=== PATIENT | male | born 1945 | race Caucasian/White ===

== ENCOUNTER 2018-06-05 17:05 | Observation (INO) | payer OTHER ==
--- NOTE | 2018-06-05 18:02 | PDOC ---
Attending Attestation - HPI HPI: 06/05/18 18:59 The patient is a 73 year old male with a significant PMH of hypertension, and hyperlipidemia who presents to the emergency department with a headache for 2 days. The patient reports that he was at home when he had a sudden onset of his headache. He states that he has never had issues with headaches in the past. The patient describes his headache as right sided ,a 7/10 in severity, intermittent lasting about 10 minutes at a time 3 times a day and , worsened at night. The patient reports some associated blurry vision in his right eye and double vision with clear discharge from his right eye. The patient reports taking motrin with no apparent relief. He denies any recent illness, trauma or travel. He denies any other symptoms. He denies any fever, chills, nausea, vomiting, diarrhea, constipation or urinary symptoms. He denies any chest pain, shortness of breath, or dizziness. The patient denies any other complaints. Documentation prepared by Priti Suárez, acting as medical review coordinator for Cherrie Vergara MD. <Priti Suárez - Last Filed: 06/05/18 18:59> - Resident Resident Name: Yaw Márquez - ED Attending Attestation I have performed the following: I have examined & evaluated the patient, The case was reviewed & discussed with the resident, I agree w/resident's findings & plan, Exceptions are as noted - Physicial Exam PE: GENERAL: Awake, alert, and fully oriented, in no acute distress HEAD: No signs of trauma EYES: PERRLA, EOMI, sclera anicteric, conjunctiva clear ENT: Auricles normal inspection, hearing grossly normal, nares patent, oropharynx clear without exudates. Moist mucosa NECK: Normal ROM, supple, no lymphadenopathy, JVD, or masses LUNGS: Breath sounds equal, clear to auscultation bilaterally. No wheezes, and no crackles HEART: Regular rate and rhythm, normal S1 and S2, no murmurs, rubs or gallops ABDOMEN: Soft, nontender, normoactive bowel sounds. No guarding, no rebound. No masses EXTREMITIES: L hand in glove (prior injury, per family member at bedside). Normal range of motion, no edema. No clubbing or cyanosis. No cords, erythema, or tenderness NEUROLOGICAL: Cranial nerves II through XII grossly intact. Normal speech, normal gait. Motor and sensation intact. SKIN: Warm, Dry, normal turgor, no rashes or lesions noted. - Medical Decision Making 06/05/18 19:42 Pt with hedache that woke him from sleep, blurry vision on R side. Will obtain CTH to r/o ICH. If neg, will consider with contrast to r/o mass. <Cherrie Vergara - Last Filed: 06/05/18 19:43>
--- NOTE | 2018-06-05 18:14 | PDOC ---
History of Present Illness - General Chief Complaint: Headache Stated Complaint: Headache Time Seen by Provider: 06/05/18 17:44 History Source: Patient Exam Limitations: No Limitations - History of Present Illness Initial Comments: 06/05/18 18:08 73 yo male pmh of HTN and HLD presents to the ED with a right sided MILLER. Patient states he has never suffered from MILLER in the past. The MILLER started 2 days ago, woke him up out of sleep and comes in waves that last 10 min with an average of 3X per day, worse at night. MILLER is described as squeezing, 10/10 non radiating with no known triggers and no relief after trying Motrin today. Of note, pt PCP and has been off his BP medications for 1 month.Admits to associated blurry vision and double vision in right eye. Denies recent trauma, N /V/F/C, one sided weakness or sensory deficits, incontinence or retention of urine or stool, recent travel or illness. Denies CP, SOB, abdominal pain. 06/06/18 00:10 After discharging pt, daughter states she just spoke with his who admits the patient has had a week of intermittent chest pain and fainted Thursday. Patient has also been dizzy intermittently over the last week. Past History - Past Medical History Allergies/Adverse Reactions: Allergies Allergy/AdvReac Type Severity Reaction Status Date / Time No Known Allergies Allergy Verified 06/05/18 17:12 Home Medications: Ambulatory Orders Ibuprofen [Motrin Ib] 400 mg PO Q6H PRN 06/05/18 COPD: No - Suicide/Smoking/Psychosocial Hx Smoking History: Never smoked Information on smoking cessation initiated: No Hx Alcohol Use: No Drug/Substance Use Hx: No Substance Use Type: None Review of Systems - Review of Systems Constitutional: No: Chills, Fever HEENTM: Yes: Eye Pain, Blurred Vision, Recent change in vision (2 days ago), Double Vision, Other (headache right side) Respiratory: No: Shortness of Breath Cardiac (ROS): No: Chest Pain, Edema, Irregular Heart Rate, Lightheadedness, Syncope ABD/GI: No: Constipated, Diarrhea, Nausea, Vomiting : No: Burning, Dysuria Musculoskeletal: No: Back Pain Neurological: Yes: Headache (right sided). No: Numbness, Paresthesia, Tingling , Weakness, Ataxia *Physical Exam - Vital Signs Last Vital Signs Temp Pulse Resp BP Pulse Ox 98.6 F 72 18 141/83 100 06/05/18 17:12 06/05/18 17:12 06/05/18 17:12 06/05/18 17:12 06/05/18 17:12 ED Treatment Course - LABORATORY CBC & Chemistry Diagram: 06/05/18 18:20 06/05/18 18:20 Medical Decision Making - Medical Decision Making 06/05/18 22:38 73 yo presents to ED for 2 day MILLER and not on BP meds for 1 month. No concerning neurological s/s 1000mg IV tylenol resolved pain Head CT w/wo IV contrast given, no acute findings Benadryl given for rash after contrast, cleared rash Will follow up with [facility] for high BP Discharge home with motrin/tylenol OTC 06/06/18 00:26 After discharging pt, daughter states she just spoke with his who admits the patient has had a week of intermittent chest pain and fainted Thursday. Patient has also been dizzy intermittently over the last week. Pt will be admitted to OBS under [facility] *DC/Admit/Observation/Transfer Diagnosis at time of Disposition: Headache Qualifiers: Headache type: unspecified Headache chronicity pattern: acute headache Intractability: not intractable Qualified Code(s): R51 - Headache Chest pain Qualifiers: Chest pain type: unspecified Qualified Code(s): R07.9 - Chest pain, unspecified Syncope Qualifiers: Encounter type: initial encounter - Discharge Dispostion Disposition: HOME Condition at time of disposition: Stable Decision to Admit order: Yes - Referrals Referrals: [facility] [place] [Provider Group] - Patient Instructions Printed Discharge Instructions: DI for Headache Additional Instructions: Por favor, sam un seguimiento con la Clnica referida en el paquete en los prximos 3 [place] para rebecca mirella. La presin arterial debe abordarse ya que no miller tomado medicamentos maida 1 mes. [place] Motrin y Tylenol sobre el mostrador janie se indica en la caja para el dolor de tory. Regrese a la joshua de emergencias para los sntomas nuevos o que empeoran, entre los que se incluyen: prdida de la visin, debilidad en un lado del cuerpo, nuseas, vmitos o incontinencia. Amber. Print Language: KYRGYZ - Post Discharge Activity
[2018-06-05 19:08] LABS: BASO % 0.7 % (0-2.0); EOS % 1.9 % (0-4.5); HEMOGLOBIN 14.1 GM/dL (11.7-16.9); LYMPH % 31.4 % (8-40); MCH 30.7 pg (25.7-33.7); MCHC 34.4 g/dl (32.0-35.9); MEAN CELL VOLUME 89.2 fl (80-96); MEAN PLT VOLUME 9.6 fl (7.5-11.1); MONO % 8.3 % (3.8-10.2); NEUT % 57.7 % (42.8-82.8); PLATELET COUNT 200 K/MM3 (134-434); RDW 13.3 % (11.9-15.9); WHITE BLOOD COUNT 9.3 K/mm3 (4.0-10.0)
[2018-06-05] MEDS ORDERED: ACETAMINOPHEN 1000 MG/100 ML VIAL (NON FORMULARY) IVPB ONE (19:37)
[2018-06-05 19:49] LABS: ALBUMIN 3.6 g/dl (3.4-5.0); ALK PHOS 105 U/L (45-117); ANION GAP 10 MMOL/L (8-16); BILIRUBIN,TOTAL 0.6 mg/dL (0.2-1); BLOOD UREA NITROGEN 23 mg/dL (7-18); CALCIUM 8.4 mg/dL (8.5-10.1); CHLORIDE 105 mmol/L (98-107); CO2 24 mmol/L (21-32); GLUCOSE,RANDOM 89 mg/dL (74-106); POTASSIUM 3.3 mmol/L (3.5-5.1); SGOT/AST 32 U/L (15-37); SGPT/ALT 51 U/L (13-61); SODIUM 139 mmol/L (136-145); TOT PROT 7.2 g/dl (6.4-8.2)
[2018-06-05] MEDS ORDERED: ACETAMINOPHEN INJECTION 100 ML IVPB ONE (19:49)
[2018-06-05 19:57] LABS: ERYTHROCYTE SEDIMENTATION RATE 2 mm/hr (0-20)
[2018-06-05] MEDS ORDERED: diphenhydrAMINE HCL 25 MG CAPSULE (FP) PO ONE ×2 (21:49→21:53)
--- NOTE | 2018-06-06 00:06 | PN ---
Teaching Attending Note Name of Resident: Ashley Corona ATTENDING PHYSICIAN STATEMENT I saw and evaluated the patient. I reviewed the resident's note and discussed the case with the resident. I agree with the resident's findings and plan as documented. SUBJECTIVE: Patient is a 73 year old with PMH of HTN and HLD who presents to the ER with a right sided headache. Patient states he has never suffered from headache in the past. The headache started 2 days ago, woke him up out of sleep and comes in waves that last 10 min with an average of 3X per day, worse at night. MILLER is described as squeezing, 10/10 non radiating with no known triggers and no relief after trying Motrin today. Of note, his PCP and has been off his BP medications for 1 month. Admits to associated blurry vision and double vision in right eye. Denies recent trauma, nausea, vomiting, one sided weakness or sensory deficits, incontinence or retention of urine or stool, chest pain or SOB. As the workup for headache was completed his family called and said that he had presyncope 5 days ago with associated chest pain. OBJECTIVE: Alert Vital Signs Period Temp Pulse Resp BP Sys/Montez Pulse Ox Last 24 Hr 98.6 F 53-72 18-18 141-156/83-87 96-100 HEENT: No Jaundice, eye redness or discharge, PERRLA, EOMI. Normocephalic, atraumatic. External ears are normal and hearing is grossly intact. No nasal discharge. Neck: Supple, nontender. No palpable adenopathy or thyromegaly. No JVD Chest: Good effort. Clear to auscultation and percussion. Heart: Regular. No S3, rub or murmur Abdomen: Not distended, soft, nontender and no HSM. No rebound or guarding. Normoactive bowel sounds. Ext: Peripheral pulses intact. No leg edema. Skin: Warm and dry. No petechiae, rash or ecchymosis. Neuro: Alert. Oriented x3. CN 2-12 grossly intact. Sensation grossly intact in all four extremities and DTR are symmetric. Home Medications Medication Instructions Recorded Ibuprofen [Motrin Ib] 400 mg PO Q6H PRN 06/05/18 Abnormal Lab Results 06/05/18 18:20 Potassium 3.3 L BUN 23 H Calcium 8.4 L C-Reactive Protein 0.6 H ASSESSMENT AND PLAN: 1. Headache - Etiology is unclear. No acute pathology on head CT scan done with and without contrast. His headache responded to IV tylenol. Etiology of hypokalemia is unclear. Will check Mg+ level and treat with PO KCL. Consult Neurology. No acute pathology on CXR. EKG showed mild bradycardia but no ST-T wave changes and troponin is negative. Will admit to telemetry to rule out ACS, get ECHO and carotid doppler. Get urinalysis. 2. DVT prophylaxis - Lovenox 40 mg SQ q 24 hours. 3. Advance directives - Full code
[2018-06-06] MEDS ORDERED: ACETAMINOPHEN 325 MG TABLET (FP) PO PRN (00:44)
[2018-06-06] MEDS ORDERED: POTASSIUM CHLORIDE ORAL LIQUID 20 MEQ/15 ML PO ONE (00:48)
--- NOTE | 2018-06-06 00:56 | HP ---
CHIEF COMPLAINT: Headache, near syncope episode PCP: HISTORY OF PRESENT ILLNESS: Patient is a 73 year old male with past medical history of HTN and HLD, presented to the ED with worsening right-sided headache that started 2 days ago. Patient also reported intermittent chest heaviness for the past week and was reported to have a near syncope episode 5 days ago. Patient reports that he has been having chest heaviness that started 1 week ago. Pain was nonradiating with no aggravating or alleviating factors. Five days ago, patient was walking up the stairs when suddenly he felt lightheaded and had to hold on to the rails. No consult done at that time. Two days prior, patient had sudden onset right-sided headache, 7/10, intermittent that would last about 10 minutes. This was accompanied by right eye pain, blurred vision and clear discharge. Patient took motrin with no relief. Persistence of pain prompted patient to go to the ED. Otherwise, he denies fever, chills, nausea, vomiting, SOB, dyspnea, abdominal pain, diarrhea or constipation. ER course was notable for: (1)K 3.3 (2)Head CT w/ and w/o contrast (3)Ofirmev 1000mg given Recent Travel:denies any recent travel PAST MEDICAL HISTORY: Hypertension Hyperlipidemia PAST SURGICAL HISTORY: L hand fracture s/p metal santana placement Social History: Smoking:previous smoker, used to smoke 1PPD, quit 30years ago Alcohol:occasional EtOH drinker Drugs: denies illicit drug use Family History:non contributory Allergies No Known Allergies Allergy (Verified 06/05/18 17:12) HOME MEDICATIONS: Home Medications Medication Instructions Recorded Ibuprofen [Motrin Ib] 400 mg PO Q6H PRN 06/05/18 REVIEW OF SYSTEMS CONSTITUTIONAL: Absent: fever, chills, diaphoresis, generalized weakness, malaise, loss of appetite, weight change HEENT: headache, right eye pain and discharge Absent: rhinorrhea, nasal congestion, throat pain, throat swelling, difficulty swallowing, mouth swelling, ear pain, eye pain, visual changes CARDIOVASCULAR: Absent: chest pain, syncope, palpitations, irregular heart rate, lightheadedness , peripheral edema RESPIRATORY: Absent: cough, shortness of breath, dyspnea with exertion, orthopnea, wheezing, stridor, hemoptysis GASTROINTESTINAL: Absent: abdominal pain, abdominal distension, nausea, vomiting, diarrhea, constipation, melena, hematochezia GENITOURINARY: Absent: dysuria, frequency, urgency, hesitancy, hematuria, flank pain, genital pain MUSCULOSKELETAL: Absent: myalgia, arthralgia, joint swelling, back pain, neck pain SKIN: Absent: rash, itching, pallor HEMATOLOGIC/IMMUNOLOGIC: Absent: easy bleeding, easy bruising, lymphadenopathy, frequent infections ENDOCRINE: Absent: unexplained weight gain, unexplained weight loss, heat intolerance, cold intolerance NEUROLOGIC: Absent: headache, focal weakness or paresthesias, dizziness, unsteady gait, seizure, mental status changes, bladder or bowel incontinence PSYCHIATRIC: Absent: anxiety, depression, suicidal or homicidal ideation, hallucinations. PHYSICAL EXAMINATION Vital Signs - 24 hr 06/05/18 06/05/18 06/05/18 17:12 17:50 18:00 Temperature 98.6 F Pulse Rate 72 Pulse Rate [ 67 Radial] Respiratory 18 18 Rate Blood Pressure 141/83 Blood Pressure 156/87 [Left Arm] O2 Sat by Pulse 100 98 98 Oximetry (%) 06/05/18 23:37 Temperature Pulse Rate Pulse Rate [ 53 L Radial] Respiratory 18 Rate Blood Pressure Blood Pressure 145/83 [Left Arm] O2 Sat by Pulse 96 Oximetry (%) GENERAL: Awake, alert, and fully oriented, in no acute distress. HEAD: Normal with no signs of trauma. EYES: PERRLA,EOMI, sclera anicteric, conjunctiva clear. No lid lag. EARS, NOSE, THROAT: Ears normal, nares patent, oropharynx clear without exudates. Moist mucous membranes. NECK: Normal range of motion, supple without lymphadenopathy, JVD, or masses. LUNGS: Breath sounds equal, clear to auscultation bilaterally. HEART: Regular rate and rhythm, normal S1 and S2 without murmur, rub or gallop. ABDOMEN: Soft, nontender, not distended, normoactive bowel sounds. MUSCULOSKELETAL: Normal range of motion at all joints. No bony deformities or tenderness. No CVA tenderness. UPPER EXTREMITIES: 2+ pulses, warm, well-perfused. No cyanosis. No clubbing. No peripheral edema. LOWER EXTREMITIES: 2+ pulses, warm, well-perfused. No calf tenderness. No peripheral edema. NEUROLOGICAL: Cranial nerves II-XII intact. Normal speech. Normal gait. sensation intact, motor 5/5. PSYCHIATRIC: Cooperative. Good eye contact. Appropriate mood and affect. SKIN: Warm, dry, normal turgor, no rashes or lesions noted, normal capillary refill. Laboratory Results - last 24 hr 06/05/18 06/05/18 06/05/18 18:20 18:20 23:05 WBC 9.3 RBC 4.60 Hgb 14.1 Hct 41.0 MCV 89.2 MCH 30.7 MCHC 34.4 RDW 13.3 Plt Count 200 MPV 9.6 Absolute Neuts (auto) 5.4 Neutrophils % 57.7 Lymphocytes % 31.4 Monocytes % 8.3 Eosinophils % 1.9 Basophils % 0.7 Nucleated RBC % 0 ESR 2 Sodium 139 Potassium 3.3 L Chloride 105 Carbon Dioxide 24 Anion Gap 10 BUN 23 H Creatinine 1.0 Creat Clearance w eGFR > 60 Random Glucose 89 Calcium 8.4 L Total Bilirubin 0.6 AST 32 ALT 51 Alkaline Phosphatase 105 Creatine Kinase 234 Creatine Kinase Index 1.1 CK-MB (CK-2) 2.6 Troponin I 0.02 C-Reactive Protein 0.6 H Total Protein 7.2 Albumin 3.6 ASSESSMENT/PLAN: Patient is a 73 year old male with past medical history of HTN and HLD, presented to the ED with worsening right-sided headache that started 2 days ago. Patient also reported intermittent chest heaviness for the past week and was reported to have a near syncope episode 5 days ago. #Near syncope episode: ACS vs TIA/CVA -Trop 0.02, will trend -Echocardiogram ordered -Head CT pending final read -Continue ASA 325mg daily. -Started Lipitor 10mg PO HS #Headache: likely migraine vs cluster headache, r/o ICH and mass -Head CT with and without contrast done - pending final read -Tylenol IV provided significant relief -Tylenol 650mg q6h PRN #Hypokalemia: K 3.3 -K-dur 40meq PO given -will monitor #Hypertension -Continue HCTZ/Lisinopril 12.5/20 daily -Has not taken medication for the past 2 months as PCP and patient has not seen any doctor for refills since. #Hyperlipidemia -No meds recorded at the pharmacy -Started Lipitor 10mg PO HS #FEN -not on any standing fluids -encourage increased oral fluid intake -hypoK, replete as needed -routine bmp monitoring -sodium-restricted diet #Prophylaxis -Heparin 5000units sq tid #Disposition -admit to tele obs Visit type - Emergency Visit Emergency Visit: Yes ED Registration Date: 06/06/18 Care time: The patient presented to the Emergency Department on the above date and was hospitalized for further evaluation of their emergent condition. - New Patient This patient is new to me today: Yes Date on this admission: 06/06/18 - Critical Care Critical Care patient: No
[2018-06-06] MEDS ORDERED: POTASSIUM CHLORIDE TABS 20 MEQ TABLET.ER (FP) PO ONE ×2 (00:59→01:37)
[2018-06-06 07:05] LABS: URINE APPEARANCE CLEAR; URINE BILIRUBIN NEGATIVE (<2.0 mg/dL); URINE COLOR LTYELLOW; URINE GLUCOSE (UA) NEGATIVE (NEGATIVE); URINE KETONE NEGATIVE (NEGATIVE); URINE LEUK ESTERASE NEGATIVE (NEGATIVE); URINE NITRITE NEGATIVE (NEGATIVE); URINE PROTEIN NEGATIVE (NEGATIVE); URINE UROBILINOGEN NEGATIVE mg/dL (0.2-1.0)
[2018-06-06 08:00] LABS: BASO % 1.1 % (0-2.0); EOS % 3.4 % (0-4.5); HEMOGLOBIN 14.3 GM/dL (11.7-16.9); LYMPH % 33.4 % (8-40); MCH 30.4 pg (25.7-33.7); MCHC 33.9 g/dl (32.0-35.9); MEAN CELL VOLUME 89.7 fl (80-96); MEAN PLT VOLUME 10.1 fl (7.5-11.1); MONO % 7.1 % (3.8-10.2); PLATELET COUNT 165 K/MM3 (134-434); RBC 4.68 M/mm3 (4.00-5.60); RDW 13.3 % (11.9-15.9); WHITE BLOOD COUNT 7.3 K/mm3 (4.0-10.0)
[2018-06-06] MEDS ORDERED: HEPARIN NA (PORCINE) 5,000 UNITS/ML 1ML VIAL ONE ×3 (08:16→22:49)
[2018-06-06] MEDS: HEPARIN NA (PORCINE) 5,000 UNITS/ML 1ML VIAL SQ SCH ×3 (08:21→23:00)
[2018-06-06 09:05] LABS: ALBUMIN 3.4 g/dl (3.4-5.0); ALK PHOS 98 U/L (45-117); ANION GAP 8 MMOL/L (8-16); BILIRUBIN,TOTAL 0.6 mg/dL (0.2-1); BLOOD UREA NITROGEN 20 mg/dL (7-18); CALCIUM 8.1 mg/dL (8.5-10.1); CHLORIDE 106 mmol/L (98-107); CO2 27 mmol/L (21-32); CREATININE 0.9 mg/dL (0.55-1.3); GLUCOSE,RANDOM 86 mg/dL (74-106); MAGNESIUM 2.4 mg/dL (1.8-2.4); PHOSPHOROUS 3.8 mg/dL (2.5-4.9); POTASSIUM 3.7 mmol/L (3.5-5.1); SGOT/AST 39 U/L (15-37); SGPT/ALT 48 U/L (13-61); SODIUM 141 mmol/L (136-145)
[2018-06-06] MEDS: ASPIRIN 325 MG ENTERIC COATED TABLET (FP) PO SCH (09:25)
[2018-06-06] MEDS: TAMSULOSIN HCL 0.4 MG CAP PO SCH (09:25)
[2018-06-06] MEDS: HYDROCHLOROTHIAZIDE 12.5 MG CAPSULE (FP) PO SCH (09:26)
[2018-06-06] MEDS: LISINOPRIL 20 MG TABLET (FP) PO SCH (09:26)
[2018-06-06] MEDS ORDERED: PATIENT'S OWN MEDICATION (NON-FORMULARY) (Lisinopril/Hydrochlorothiazide [Lisinopril-Hctz PO SCH (10:00)
--- NOTE | 2018-06-06 10:12 | PN ---
Physical Exam: SUBJECTIVE: Patient seen and examined, OBJECTIVE: Vital Signs Period Temp Pulse Resp BP Sys/Montez Pulse Ox Last 24 Hr 98.2 F-98.6 F 53-72 18-18 122-156/60-87 95-100 GENERAL: The patient is awake, alert, and fully oriented, in no acute distress. HEAD: Normal with no signs of trauma. EYES: mild right eye tearing, injection, PERRL, no discharge or erythema or sinai-orbital swelling, sticky right eye ENT: Ears normal, nares patent, oropharynx clear without exudates, moist mucous membranes. NECK: Trachea midline, full range of motion, supple. LUNGS: Breath sounds equal, clear to auscultation bilaterally, no wheezes, no crackles, no accessory muscle use. HEART: S1S2 regular rate rhythm ABDOMEN: Soft, nontender, nondistended, normoactive bowel sounds, no guarding, no rebound EXTREMITIES: 2+ pulses, warm, well-perfused, no edema. NEUROLOGICAL: Cranial nerves II through XII grossly intact. Normal speech, gait not observed. AAox3, power 5/5, sensation positive and symmetric to light touch, power 5/5 except right hand movements limited by splint and recent trauma, Toes down going, facial symmetry, tongue midline PSYCH: Normal mood, normal affect. SKIN: Warm, dry, normal turgor, no rashes or lesions noted Laboratory Results - last 24 hr 06/05/18 06/05/18 06/05/18 18:20 18:20 23:05 WBC 9.3 RBC 4.60 Hgb 14.1 Hct 41.0 MCV 89.2 MCH 30.7 MCHC 34.4 RDW 13.3 Plt Count 200 MPV 9.6 Absolute Neuts (auto) 5.4 Neutrophils % 57.7 Lymphocytes % 31.4 Monocytes % 8.3 Eosinophils % 1.9 Basophils % 0.7 Nucleated RBC % 0 ESR 2 Sodium 139 Potassium 3.3 L Chloride 105 Carbon Dioxide 24 Anion Gap 10 BUN 23 H Creatinine 1.0 Creat Clearance w eGFR > 60 Random Glucose 89 Calcium 8.4 L Phosphorus Magnesium Total Bilirubin 0.6 AST 32 ALT 51 Alkaline Phosphatase 105 Creatine Kinase 234 Creatine Kinase Index 1.1 CK-MB (CK-2) 2.6 Troponin I 0.02 C-Reactive Protein 0.6 H Total Protein 7.2 Albumin 3.6 Urine Color Urine Appearance Urine pH Ur Specific [place] Urine Protein Urine Glucose (UA) Urine Ketones Urine Blood Urine Nitrite Urine Bilirubin Urine Urobilinogen Ur Leukocyte Esterase 06/06/18 06/06/18 06/06/18 06:06 07:35 07:35 WBC 7.3 RBC 4.68 Hgb 14.3 Hct 42.0 MCV 89.7 MCH 30.4 MCHC 33.9 RDW 13.3 Plt Count 165 MPV 10.1 Absolute Neuts (auto) 4.0 Neutrophils % 55.0 Lymphocytes % 33.4 Monocytes % 7.1 Eosinophils % 3.4 Basophils % 1.1 Nucleated RBC % 0 ESR Sodium 141 Potassium 3.7 Chloride 106 Carbon Dioxide 27 Anion Gap 8 BUN 20 H Creatinine 0.9 Creat Clearance w eGFR > 60 Random Glucose 86 Calcium 8.1 L Phosphorus 3.8 Magnesium 2.4 Total Bilirubin 0.6 AST 39 H ALT 48 Alkaline Phosphatase 98 Creatine Kinase 206 Creatine Kinase Index 0.9 CK-MB (CK-2) 2.0 Troponin I 0.02 C-Reactive Protein Total Protein 7.0 Albumin 3.4 Urine Color Ltyellow Urine Appearance Clear Urine pH 5.0 Ur Specific [place] > 1.060 H Urine Protein Negative Urine Glucose (UA) Negative Urine Ketones Negative Urine Blood Negative Urine Nitrite Negative Urine Bilirubin Negative Urine Urobilinogen Negative Ur Leukocyte Esterase Negative Active Medications Generic Name Dose Route Start Last Admin Trade Name Freq PRN Reason Stop Dose Admin Acetaminophen 650 mg 06/06/18 00:44 Tylenol - PO Q6H PRN PAIN LEVEL 1-5 OR FEVER Aspirin 325 mg 06/06/18 10:00 06/06/18 09:25 Ecotrin - PO 325 mg DAILY DAYAN Administration Atorvastatin Calcium 10 mg 06/06/18 22:00 Lipitor - PO HS DAYAN Heparin Sodium (Porcine) 5,000 unit 06/06/18 06:00 06/06/18 08:21 Heparin - SQ 5,000 unit TID DAYAN Administration Hydrochlorothiazide 12.5 mg 06/06/18 10:00 06/06/18 09:26 Hctz - PO 12.5 mg DAILY DAYAN Administration Lisinopril 20 mg 06/06/18 10:00 06/06/18 09:26 Prinivil PO 20 mg DAILY DAYAN Administration Tamsulosin HCl 0.4 mg 06/06/18 08:30 06/06/18 09:25 Flomax - PO 0.4 mg DAILY@0830 [facility] Administration ASSESSMENT/PLAN: 73 yom with PMhx of HTN, HLD admitted with unilateral headache with right eye pain/blurry vision/tearing and chest heaviness for 1 week. -Unilateral headache, ?from early conjunctivitis, r/o migraine vs cluster headaches -Chest pain -HTN -HLD Plan: Mild sticky right eye with conjuntival injection and tearing. Trial with Ofloxacin eye drops qid, opthalmology input,especially if fails to improve. Cannot r/o migraine/cluster headaches. Placed on NSAIDs pending CT brain results. Follow up CT brain results. Neurology consult Dr. Jacob cardiology input. ACS ruled out. 2D echo. Further testing based on clinical course and cardiology recs. Check lipid panel. Continue ASA/statin/lisinopril/HCTZ. DVTPPX heparin dispo pending above Plan discussed with patient in detail, all questions answered. Visit type - Emergency Visit Emergency Visit: Yes ED Registration Date: 06/06/18 Care time: The patient presented to the Emergency Department on the above date and was hospitalized for further evaluation of their emergent condition. - New Patient This patient is new to me today: Yes Date on this admission: 06/06/18 - Critical Care Critical Care patient: No - Discharge Referral Referred to [facility] Med P.[facility].: No
[2018-06-06 10:22] LABS: CHOLESTEROL 170 mg/dL (50-200); HDL CHOLESTEROL 40 mg/dL (40-60); TRIGLYCERIDES 130 mg/dL (0-150)
[2018-06-06] MEDS ORDERED: OFLOXACIN 0.3% OPHTHALMIC SOLUTION 5 ML BOTTLE OU ONE (10:23)
--- NOTE | 2018-06-06 10:50 | EKG ---
Test Reason : Blood Pressure : / mmHG Vent. Rate : 059 BPM Atrial Rate : 059 BPM P-R Int : 170 ms QRS Dur : 096 ms QT Int : 438 ms P-R-T Axes : 048 -03 074 degrees QTc Int : 433 ms SINUS BRADYCARDIA NONSPECIFIC ST ABNORMALITY Confirmed by HO HOOVER MD ([id number]) on 06/06/2018 10:50:13 AM Referred By: Confirmed By:HO HOOVER MD
[2018-06-06] MEDS: OFLOXACIN 0.3% OPHTHALMIC SOLUTION 5 ML BOTTLE OU SCH ×4 (12:07→23:00)
--- NOTE | 2018-06-06 12:36 | CON.NEURO ---
Consult Consult Specialty:: [facility] Referred by:: ER Reason for Consultation:: MILLER - History of Present Illness History of Present Illness: 73 years old man with PMH CAd OA HTN Hich Chol presented with headache Head CT neg I saw dylon patient in the ER he was complaining pf frontal headache no visual symptom no neck pain Patient denies prior similar headache no recent travel ESR was 2 - History Source History Provided By: Medical Record Limitations to Obtaining History: No Limitations - Alcohol/Substance Use Hx Alcohol Use: No - Smoking History Smoking history: Never smoked Home Medications - Allergies Allergies/Adverse Reactions: Allergies Allergy/AdvReac Type Severity Reaction Status Date / Time No Known Allergies Allergy Verified 06/05/18 17:12 - Home Medications Home Medications: Ambulatory Orders Ibuprofen [Motrin Ib] 400 mg PO Q6H PRN 06/05/18 Aspirin [Aspirin EC] 325 mg PO DAILY 06/06/18 Lisinopril/Hydrochlorothiazide [Lisinopril-Hctz 20-12.5 mg Tab] 1 each PO DAILY 06/06/18 Tamsulosin HCl [Flomax] 0.4 mg PO DAILY 06/06/18 Review of Systems - Review of Systems Constitutional: reports: No Symptoms Eyes: reports: No Symptoms Physical Exam-Neuro Vital Signs: Vital Signs Temperature 98.2 F 06/06/18 08:54 Pulse Rate 56 L 06/06/18 08:54 Respiratory Rate 18 06/06/18 08:54 Blood Pressure 122/60 06/06/18 08:54 O2 Sat by Pulse Oximetry (%) 95 06/06/18 08:54 Constitutional: Yes: Well Nourished Neck: Yes: WNL Labs: CBC, BMP 06/06/18 07:35 06/06/18 07:35 - Neuro Exam Level Of Consciousness: Yes: Oriented to Person, Oriented to Place, Oriented to Time Eyes: Yes: PERRLA Speech: WNL Dominant Hand: Right Cranial Nerves II-XII Intact: Yes Gag: Present DTR's: 1+ Left Bicep, 1+ Right Bicep, 1+ Left Brachioradialis, 1+ Right Brachioradialis Response to light touch: Normal Response to pain prick: Normal Response to temperature: Normal Motor Strength: 4/5: Left Arm, Right Arm, Left Leg, Right Leg Gait: Deferred Imaging - Results Cat Scan: Image Reviewed Problem List - Problems (1) Headache Assessment/Plan: No 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 tension vs GCA 1. Neuro check s 2. CRP 3. Tylenol prn 4. Neuro ok to the floor if needs admmsion will get MRI as OP Many thanks for the kind referral; Code(s): R51 - HEADACHE Qualifiers: Headache type: unspecified Headache chronicity pattern: acute headache Intractability: not intractable Qualified Code(s): R51 - Headache
--- NOTE | 2018-06-06 12:49 | CONSULT ---
Consult - text type - Consultation Consultation Note: Cardiology (Dr. Lee covering Dr. Liu) Patient seen and examined Used daughter as Dutch translation 73 yo male Known h/o HTN and hyperlipidemia, does not recall his antihypertensive medications. Now presents to the ED with 1 wee severe right frontal headache and fullness in his face. Also endorses intermittent exertional chest pressure (mid sternal) with exertion , particularly when climbing stairs. Prior smoker who quit 30 years ago. Under went neurological evaluation in ED with CT Head which was reportedly negative for bleed per neurology note. No known h/o DM or prior OR. Was seen by sql server dba 6 years ago and had a Holter monitor. Does not recall results. No prior stress testing performed. Meds at home: Does not recall ALL: NKDA SocHx: Unemployed, , no tobacco use PE: 122/60mmHg, p 56/min Awake, no distress JVP normal Normal carotid upstroke Regular rate, no murmurs Lungs are clear bilaterally Abd soft, non tender, no HSM Legs are warm and well perfused ECG at 06/06/2018 06:06 : SB at 59/min Labs: Trop 0.02 x 2, BUN/Cr 20/0.9, Hgb 14.3 IMP/PLAN: 73 yo male with HTN and HPL admitted with headache and 1 week h/o chest pain. ECG normal and troponin neg. 1) Chest pain -CV risks include HTN, HPL, prior tobacco use. -Symptoms are exertional and seem typical for angina, ECG OK -Would pursue further inpatient risk stratification with stress MPI after neurological eval is completed. -Cardiac enzymes neg x 2. -Would add asa 81mg daily -Check lipids. 2) HTN -Well controlled at the moment on Lisinopril 20mg and HCTZ 25mg. OK to continue. -Continue to monitor
[2018-06-06] MEDS ORDERED: KETOROLAC TROMETHAMINE 15 MG/ML VIAL IVPUSH PRN (15:42)
[2018-06-06] MEDS: ATORVASTATIN CA 10 MG TABLET (FP) PO SCH (23:00)
[2018-06-07] MEDS ORDERED: HEPARIN NA (PORCINE) 5,000 UNITS/ML 1ML VIAL ONE ×2 (05:47→17:15)
[2018-06-07] MEDS: HEPARIN NA (PORCINE) 5,000 UNITS/ML 1ML VIAL SQ SCH ×3 (06:30→21:53)
[2018-06-07 07:23] LABS: ANION GAP 10 MMOL/L (8-16); BASO % 0.5 % (0-2.0); BLOOD UREA NITROGEN 21 mg/dL (7-18); CALCIUM 8.8 mg/dL (8.5-10.1); CHLORIDE 106 mmol/L (98-107); CO2 25 mmol/L (21-32); CREATININE 0.9 mg/dL (0.55-1.3); EOS % 3.5 % (0-4.5); GLUCOSE,RANDOM 87 mg/dL (74-106); HEMATOCRIT 42.7 % (35.4-49); HEMOGLOBIN 14.3 GM/dL (11.7-16.9); LYMPH % 36.5 % (8-40); MAGNESIUM 2.3 mg/dL (1.8-2.4); MCH 30.2 pg (25.7-33.7); MCHC 33.5 g/dl (32.0-35.9); MEAN PLT VOLUME 9.8 fl (7.5-11.1); NEUT % 53.5 % (42.8-82.8); PHOSPHOROUS 4.1 mg/dL (2.5-4.9); PLATELET COUNT 189 K/MM3 (134-434); POTASSIUM 3.6 mmol/L (3.5-5.1); RBC 4.74 M/mm3 (4.00-5.60); RDW 12.9 % (11.9-15.9); SODIUM 141 mmol/L (136-145); WHITE BLOOD COUNT 8.5 K/mm3 (4.0-10.0)
[2018-06-07 08:10] LABS: CHOLESTEROL 171 mg/dL (50-200); HDL CHOLESTEROL 41 mg/dL (40-60); TRIGLYCERIDES 153 mg/dL (0-150)
--- NOTE | 2018-06-07 09:07 | PN ---
Teaching Attending Note Name of Resident: Ashley Corona ATTENDING PHYSICIAN STATEMENT I saw and evaluated the patient. I reviewed the resident's note and discussed the case with the resident. I agree with the resident's findings and plan as documented with exceptions below. SUBJECTIVE: Patient seen and examined, no further headache or chest pain, doing well. OBJECTIVE: Vital Signs Period Temp Pulse Resp BP Sys/Montez Pulse Ox Last 24 Hr 97.9 F-98.0 F 60-60 17-17 105-117/60-61 98-98 Intake & Output 06/04/18 06/05/18 06/06/18 06/07/18 23:59 23:59 23:59 23:59 Weight 160 lb General; ambulating in room, no concerns CVS; S1S2 regular Chest; CTAB, no rales or wheezing Neuro: AAOx3, power 5/5, sensation intact and symmetry, facial symmetry HEENT: improved right eye conjunctival injection resolved erythema, no ongoing discharge. Active Medications Acetaminophen (Tylenol -) 650 mg PO Q6H PRN PRN Reason: PAIN LEVEL 1-5 OR FEVER Aspirin (Ecotrin -) 325 mg PO DAILY [facility] Last Admin: 06/06/18 09:25 Dose: 325 mg Atorvastatin Calcium (Lipitor -) 10 mg PO HS [facility] Last Admin: 06/06/18 23:00 Dose: 10 mg Heparin Sodium (Porcine) (Heparin -) 5,000 unit SQ TID [facility] Last Admin: 06/07/18 06:30 Dose: 5,000 unit Hydrochlorothiazide (Hctz -) 12.5 mg PO DAILY [facility] Last Admin: 06/06/18 09:26 Dose: 12.5 mg Ketorolac Tromethamine (Toradol Injection -) 15 mg IVPUSH Q6H PRN PRN Reason: PAIN LEVEL 6-10 Stop: 06/11/18 15:41 Lisinopril (Prinivil) 20 mg PO DAILY [facility] Last Admin: 06/06/18 09:26 Dose: 20 mg Ofloxacin (Ocuflox 0.3% Eye Drops -) 2 drop OU QID [facility] Last Admin: 06/06/18 23:00 Dose: 2 drop Tamsulosin HCl (Flomax -) 0.4 mg PO DAILY@0830 [facility] Last Admin: 06/06/18 09:25 Dose: 0.4 mg Laboratory Results - last 24 hr 06/06/18 06/07/18 06/07/18 07:35 06:00 06:00 WBC 8.5 RBC 4.74 Hgb 14.3 Hct 42.7 MCV 90.0 MCH 30.2 MCHC 33.5 RDW 12.9 Plt Count 189 MPV 9.8 Absolute Neuts (auto) 4.5 Neutrophils % 53.5 Lymphocytes % 36.5 Monocytes % 6.0 Eosinophils % 3.5 Basophils % 0.5 Nucleated RBC % 0 Sodium 141 141 Potassium 3.7 3.6 Chloride 106 106 Carbon Dioxide 27 25 Anion Gap 8 10 BUN 20 H 21 H Creatinine 0.9 0.9 Creat Clearance w eGFR > 60 > 60 Random Glucose 86 87 Calcium 8.1 L 8.8 Phosphorus 3.8 4.1 Magnesium 2.4 2.3 Total Bilirubin 0.6 AST 39 H ALT 48 Alkaline Phosphatase 98 Creatine Kinase 206 Creatine Kinase Index 0.9 CK-MB (CK-2) 2.0 Troponin I 0.02 C-Reactive Protein 0.5 H Total Protein 7.0 Albumin 3.4 Triglycerides 130 153 H Cholesterol 170 171 Total LDL Cholesterol 120 H 117 H HDL Cholesterol 40 41 ASSESSMENT AND PLAN: 73 yom with PMhx of HTN, HLD admitted with unilateral headache with right eye pain/blurry vision/tearing and chest heaviness for 1 week. -Unilateral headache, ?from early conjunctivitis, r/o migraine vs cluster headaches -Chest pain -HTN -HLD Plan: headache/eye symptoms resolved. Ofloxacin drops for 5 days. 2D echo/stress noted. ACS ruled out. Cardiology input noted. ASA/lipitor, continue home BP meds. Outpatient neurology follow up. MRI as indicated. Neurology input noted. Neurology consult Dr. Cecil Moore d/c home today with outpatient neurology follow up. Plan discussed with patient in detail, all questions answered.
--- NOTE | 2018-06-07 10:09 | PN ---
Progress Note, Physician Chief Complaint: cp History of Present Illness: Known h/o HTN and hyperlipidemia, does not recall his antihypertensive medications. Now presents to the ED with 1 wee severe right frontal headache and fullness in his face. Also endorses intermittent exertional chest pressure (mid sternal) with exertion , particularly when climbing stairs. Prior smoker who quit 30 years ago. Under went neurological evaluation in ED with CT Head which was reportedly negative for bleed per neurology note. - Current Medication List Current Medications: Active Medications Acetaminophen (Tylenol -) 650 mg PO Q6H PRN PRN Reason: PAIN LEVEL 1-5 OR FEVER Aspirin (Ecotrin -) 325 mg PO DAILY [facility] Last Admin: 06/06/18 09:25 Dose: 325 mg Atorvastatin Calcium (Lipitor -) 10 mg PO HS [facility] Last Admin: 06/06/18 23:00 Dose: 10 mg Heparin Sodium (Porcine) (Heparin -) 5,000 unit SQ TID [facility] Last Admin: 06/07/18 06:30 Dose: 5,000 unit Hydrochlorothiazide (Hctz -) 12.5 mg PO DAILY [facility] Last Admin: 06/06/18 09:26 Dose: 12.5 mg Ketorolac Tromethamine (Toradol Injection -) 15 mg IVPUSH Q6H PRN PRN Reason: PAIN LEVEL 6-10 Stop: 06/11/18 15:41 Lisinopril (Prinivil) 20 mg PO DAILY [facility] Last Admin: 06/06/18 09:26 Dose: 20 mg Ofloxacin (Ocuflox 0.3% Eye Drops -) 2 drop OU QID [facility] Last Admin: 06/06/18 23:00 Dose: 2 drop Tamsulosin HCl (Flomax -) 0.4 mg PO DAILY@0830 [facility] Last Admin: 06/06/18 09:25 Dose: 0.4 mg - Objective Vital Signs: Vital Signs Temperature 98.0 F 06/06/18 21:49 Pulse Rate 60 06/06/18 21:49 Respiratory Rate 17 06/06/18 21:49 Blood Pressure 117/61 06/06/18 21:49 O2 Sat by Pulse Oximetry (%) 98 06/06/18 21:49 Labs: CBC, BMP 06/07/18 06:00 06/07/18 06:00 Assessment/Plan ECG from 06/06/2018, 06:06: SB at 59/min, nonsp TWA lateral leads IMP/PLAN: 73 yo male with HTN and HPL admitted with headache and 1 week h/o chest pain. ECG normal and troponin neg. Chest pain -CV risks include HTN, HPL, prior tobacco use. -Symptoms are exertional and seem typical for angina. Cardiac enzymes neg x 2, no isch ECG findings. -plan inpatient risk stratification with stress MPI after neurological eval is completed. -aspirin 81 -LDL 117, no statin on home meds list--atorva 10 started here HTN -Well controlled. -cont Lisinopril 20mg and HCTZ 25mg.
--- NOTE | 2018-06-07 10:13 | ECHO ---
Name: TYE CARD Exam:Adult Echocardiogram Study Date: 06/07/2018 09:31 AM Age: 73 yrs Reason For Study: R/O ACS Height: 66 in Weight: 160 lb BSA: 1.8 m2 MMode/2D Measurements & Calculations IVSd: 0.86 cm Ao root diam: 2.9 cm LVIDd: 4.9 cm LA dimension: 3.7 cm LVIDs: 3.1 cm LVPWd: 0.92 cm EDV(Teich): 110.2 ml LVOT diam: 1.9 cm ESV(Teich): 38.0 ml TAPSE: 2.6 cm RV S Benja: 12.1 cm/sec Doppler Measurements & Calculations MV E max benja: 67.4 cm/sec TR max benja: 207.0 cm/sec MV A max benja: 83.4 cm/sec TR max P.2 mmHg MV E/A: 0.81 MV dec time: 0.25 sec Med Peak E' Benja: 4.5 cm/sec Med E/e': 15.1 Lat Peak E' Benja: 8.6 cm/sec Lat E/e': 7.8 Procedure A complete two-dimensional transthoracic echocardiogram was performed (2D, M-mode, Doppler and color flow Doppler). Left Ventricle The left ventricle is normal in size. Left ventricular systolic function is normal. Ejection Fraction = 65- 70%. E/A reversal mitral inflow with TDI revealing impaired relaxation with elevated filling pressure (E/E' 15). No regional wall motion abnormalities noted. Right Ventricle The right ventricle is normal size. The right ventricular systolic function is normal. RV systolic TD I is 12 cm/s. Atria The left atrial size is normal. Right atrial size is normal. Mitral Valve The mitral valve is normal in structure and function. There is mild mitral regurgitation. Tricuspid Valve The tricuspid valve is normal in structure and function. There is mild tricuspid regurgitation. Pulmo nary artery systolic pressure is at least 22 mmHg assuming RA pressure of 3 mmHg (Normal IVC and >50% harpreet apse). Aortic Valve There is mild aortic sclerosis.;. No aortic regurgitation is present. Pulmonic Valve The pulmonic valve is not well visualized. Great Vessels The aortic root is normal size. Pericardium/Pleura There is no pericardial effusion. Interpretation Summary The left ventricle is normal in size. Left ventricular systolic function is normal. No regional wall motion abnormalities noted. Ejection Fraction = 65-70%. E/A reversal mitral inflow with TDI revealing impaired relaxation with elevated filling pressure (E/E ' 15) The right ventricular systolic function is normal. The left atrial size is normal. Right atrial size is normal. There is mild mitral regurgitation. There is mild tricuspid regurgitation. Pulmonary artery systolic pressure is at least 22 mmHg assuming RA pressure of 3 mmHg (Normal IVC and >50% collapse) There is mild aortic sclerosis. There is no pericardial effusion. Previous study is not available for comparison Sergey Rouse MD 06/07/2018 10:12 AM
--- NOTE | 2018-06-07 10:33 | EKG ---
Test Reason : Blood Pressure : / mmHG Vent. Rate : 052 BPM Atrial Rate : 052 BPM P-R Int : 176 ms QRS Dur : 088 ms QT Int : 434 ms P-R-T Axes : 046 -07 098 degrees QTc Int : 403 ms SINUS BRADYCARDIA ABNORMAL ECG NO PREVIOUS ECGS AVAILABLE Confirmed by UHCE MILLS MD ([id number]) on 06/07/2018 10:33:41 AM Referred By: Confirmed By:UCHE MILLS MD
[2018-06-07] MEDS ORDERED: REGADENOSON 0.4 MG/5 ML PRE-FILLED SYRINGE IVPUSH ONE ×2 (10:34→10:45)
[2018-06-07] MEDS: TAMSULOSIN HCL 0.4 MG CAP PO SCH (10:58)
[2018-06-07] MEDS: OFLOXACIN 0.3% OPHTHALMIC SOLUTION 5 ML BOTTLE OU SCH ×4 (10:59→21:53)
[2018-06-07] MEDS: ASPIRIN 325 MG ENTERIC COATED TABLET (FP) PO SCH (10:59)
[2018-06-07] MEDS: LISINOPRIL 20 MG TABLET (FP) PO SCH (10:59)
[2018-06-07] MEDS: HYDROCHLOROTHIAZIDE 12.5 MG CAPSULE (FP) PO SCH (10:59)
--- NOTE | 2018-06-07 15:08 | DS ---
Physical Exam: SUBJECTIVE: Patient seen and examined at bedside this morning. No acute events overnight. Patient has no new complaints, with resolution of headache. He denies chest pain, SOB, palpitations, headache, dizziness, changes in vision, abdominal pain or urinary symptoms. OBJECTIVE: Vital Signs Period Temp Pulse Resp BP Sys/Montez Pulse Ox Last 24 Hr 98.0 F 60 17 117/61 98-98 PHYSICAL EXAM GENERAL: Awake, alert, and fully oriented, in no acute distress. HEAD: Normal with no signs of trauma. EYES: PERRLA,EOMI, sclera anicteric, conjunctiva clear. No lid lag. EARS, NOSE, THROAT: Ears normal, nares patent, oropharynx clear without exudates. Moist mucous membranes. NECK: Normal range of motion, supple without lymphadenopathy, JVD, or masses. LUNGS: Breath sounds equal, clear to auscultation bilaterally. HEART: Regular rate and rhythm, normal S1 and S2 without murmur, rub or gallop. ABDOMEN: Soft, nontender, not distended, normoactive bowel sounds. MUSCULOSKELETAL: Normal range of motion at all joints. No bony deformities or tenderness. No CVA tenderness. UPPER EXTREMITIES: 2+ pulses, warm, well-perfused. No cyanosis. No clubbing. No peripheral edema. LOWER EXTREMITIES: 2+ pulses, warm, well-perfused. No calf tenderness. No peripheral edema. NEUROLOGICAL: Cranial nerves II-XII intact. Normal speech. Normal gait. sensation intact, motor 5/5. PSYCHIATRIC: Cooperative. Good eye contact. Appropriate mood and affect. SKIN: Warm, dry, normal turgor, no rashes or lesions noted, normal capillary refill. LABS Laboratory Results - last 24 hr 06/07/18 06/07/18 06:00 06:00 WBC 8.5 RBC 4.74 Hgb 14.3 Hct 42.7 MCV 90.0 MCH 30.2 MCHC 33.5 RDW 12.9 Plt Count 189 MPV 9.8 Absolute Neuts (auto) 4.5 Neutrophils % 53.5 Lymphocytes % 36.5 Monocytes % 6.0 Eosinophils % 3.5 Basophils % 0.5 Nucleated RBC % 0 Sodium 141 Potassium 3.6 Chloride 106 Carbon Dioxide 25 Anion Gap 10 BUN 21 H Creatinine 0.9 Creat Clearance w eGFR > 60 Random Glucose 87 Calcium 8.8 Phosphorus 4.1 Magnesium 2.3 Triglycerides 153 H Cholesterol 171 Total LDL Cholesterol 117 H HDL Cholesterol 41 Imaging: Chest xray- A single view of the chest reveals a weak inspiration with some central crowding, right midlung granuloma and prominent mediastinum. The angles are sharp. The bones and soft tissues are intact. There are no prior studies for comparison. Head CT without contrast - No definite CT evidence of acute intracranial pathology. Head CT with contrast - No abnormal contrast enhancement is seen. Note is made of mild dilatation lateral ventricles probably due to mild central atrophy. Correlate with nonemergent MRI versus one month follow-up noncontrast CT. Echocardiogram - LV is normal in size. LV systolic function is normal. No regional wall motion abnormalities. EF =65-70%. E/A reversal mitral inflow with TDI revealing impaired relaxation with elevated filling pressure. RV systolic function is normal. LA size is normal. RA size is normal. Mild MR. Mild TR. Pulmonary artery systolic pressure is at least 22mmHg assuming RA pressure of 3 mmHg. Mild . No pericardial effusion. Stress Pharmacologic myocardial perfusion scan - Exercise results: Overall negative pharmacologic nuclear stress. Appropriate blood pressure response. Patient remained asymptomatic. No significant electrocardiographic changes were seen. Nuclear results: Small inferobasal fixed defect compatible with diaphragmatic attenuation. Normal left ventricular contraction with LV ejection fraction of 74% at rest and 76% post Lexiscan. HOSPITAL COURSE: Date of Admission:06/06/18 Date of Discharge: 06/07/18 Patient is a 73 year old male with past medical history of HTN and HLD, presented to the ED with worsening right-sided headache that started 2 days ago. Patient also reported intermittent chest heaviness for the past week and was reported to have a near syncope episode 5 days ago. Patient was admitted to rule out ACS and CVA. Cardiology and Neurology consulted. Head CT was done which showed no intracranial pathology. Cardiac enzymes trended and was negative. Echocardiogram and stress test done were unremarkable. Patient was started on Aspirin 325mg and Lipitor 10mg daily. Patient was discharged home with instructions to follow up with PCP, Cardiology and Neurology for an outpatient brain MRI. Minutes to complete discharge: 40 Discharge Summary Reason For Visit: HEADACHE/SYNCOPE/CHEST PAIN Current Active Problems Chest pain (Acute) Headache (Acute) Syncope (Acute) Condition: Stable - Instructions Diet, Activity, Other Instructions: Please translate instructions in Belarusian. You have been admitted because you had chest pain and headache. Several tests were done to work-up your heart. You had a 2D echocardiogram and stress test done that were negative for concerns. CAT scan of the brain was done which did not reveal any abnormalities. You will need to follow-up with neurology as outpatient for an MRI of the brain. Please take Tylenol as needed for headaches. You had some discharge on your right eye. You were started on Ofloxacin eye drops with improved symptoms. Please continue applying it on your eye for 5 days If symptoms continue to persist, follow-up with an statuary painter to have it further evaluated. You were started on a new medication, Atorvastatin 10mg, for your elevated cholesterol. You will continue taking this medication at home which you will take once every night because this causes drowsiness. If you notice any new muscle aches or pain, new belly pain, jaundice or new concerns on this medication, please stop the medication and call your doctor. Continue your home medications as prescribed. You will need to follow-up with your primary care doctor to have a repeat blood work, BMP (basic metabolic panel) done. Your potassium and renal function should be monitored. Follow-ups: -Please follow-up with Cardiology (Dr. Liu) in 1 week. -Follow-up with Neurology (Dr. Jacob) in 1 week. You are recommended to have a Brain MRI that you can do once discharge. Please call the office to schedule an appointment. -Follow-up with your statuary painter if right eye pain and discharge persists. -Follow-up with your primary care doctor in 1-2 weeks of discharge. If you do not have any primary care doctor, you may call [phone] to schedule an appointment at the medical clinic. Contact info: [facility] [place] [address] Call 911 or go the ED if with any worsening headaches, chest pain, loss of consciousness, shortness of breath, palpitations, belly pain, or any new concerns noted. Referrals: [facility] [Provider Group] - 1 Week Aiden Liu MD [Staff Physician] - Flakita Jacob MD [Staff Physician] - Disposition: HOME - Home Medications Comprehensive Discharge Medication List: Ambulatory Orders Tamsulosin HCl [Flomax -] 0.4 mg PO DAILY 06/06/18 Acetaminophen [Tylenol .Regular Strength -] 650 mg PO Q6H PRN tablet 06/07/18 Aspirin [Aspirin EC] 325 mg PO DAILY #30 tablet. 06/07/18 Atorvastatin Ca [Lipitor] 10 mg PO HS #30 tablet 06/07/18 Lisinopril/Hydrochlorothiazide [Lisinopril-Hctz 20-12.5 mg Tab] 1 each PO DAILY #30 tablet 06/07/18 Ofloxacin 0.3% Ophth Soln [Ocuflox -] 2 drop OU QID #0 drops 06/07/18 This patient is new to me today: Yes Date on this admission: 06/11/18 Emergency Visit: Yes ED Registration Date: 06/06/18 Care time: The patient presented to the Emergency Department on the above date and was hospitalized for further evaluation of their emergent condition. Critical Care patient: No - Discharge Referral Referred to [facility] Med P.C.: No
[2018-06-07 15:57] VITALS: TEMP 98.3
--- NOTE | 2018-06-07 16:25 | PN ---
Progress Note (short form) - Note Progress Note: s: no cp sob palps dizzy o: Vital Signs Period Temp Pulse Resp BP Sys/Montez Pulse Ox Last 24 Hr 98.0 F-98.3 F 60-69 17-18 117-148/61-72 96-98 nad no jvd rrr s1s2 no mrg cta bl nl eff aaox3 no le e/c/c abd nt nd pos bs Current Medications Generic Name Dose Route Start Last Admin Trade Name Freq PRN Reason Stop Dose Admin Acetaminophen 650 mg 06/06/18 00:44 Tylenol - PO Q6H PRN PAIN LEVEL 1-5 OR FEVER Aspirin 325 mg 06/06/18 10:00 06/07/18 10:59 Ecotrin - PO 325 mg DAILY DAYAN Administration Atorvastatin Calcium 10 mg 06/06/18 22:00 06/06/18 23:00 Lipitor - PO 10 mg HS DAYAN Administration Heparin Sodium (Porcine) 5,000 unit 06/06/18 06:00 06/07/18 06:30 Heparin - SQ 5,000 unit TID DAYAN Administration Hydrochlorothiazide 12.5 mg 06/06/18 10:00 06/07/18 10:59 Hctz - PO 12.5 mg DAILY DAYAN Administration Ketorolac Tromethamine 15 mg 06/06/18 15:42 Toradol Injection - IVPUSH 06/11/18 15:41 Q6H PRN PAIN LEVEL 6-10 Lisinopril 20 mg 06/06/18 10:00 06/07/18 10:59 Prinivil PO 20 mg DAILY DAYAN Administration Ofloxacin 2 drop 06/06/18 12:00 06/07/18 10:59 Ocuflox 0.3% Eye Drops - OU 2 drop QID DAYAN Administration Tamsulosin HCl 0.4 mg 06/06/18 08:30 06/07/18 10:58 Flomax - PO 0.4 mg DAILY@0830 DAYAN Administration CBC, BMP 06/07/18 06:00 06/07/18 06:00 echo 05/2018: nl lv/rv, mild mr, mild tr, nl rvsp mibi 05/2018: no ischemia, nl lvef IMP/PLAN: 73 yo male with HTN and HPL admitted with headache and 1 week h/o chest pain. ECG normal and troponin neg. 1) Chest pain -CV risks include HTN, HPL, prior tobacco use. -ecg unremarkable, ce's neg, no signs acs -echo and nuclear stress test today both unremarkable 2) HTN -controlled on current meds 3)hld: -cont statin cardiac [place] ok for dc
[2018-06-07] MEDS ORDERED: PT OWN MED DRAWER 7, Y5N ONE ×3 (17:47→21:48)
[2018-06-07 19:01] VITALS: BP 144/71; PULSE 65; BMI 24.8
[2018-06-07] MEDS: ATORVASTATIN CA 10 MG TABLET (FP) PO SCH (21:53)
== END 2018-06-07 22:00 | disposition home or self-care (01) ==
LOC: JER 17:05 → JERBED 06-06 00:37 → J4S 06-07 17:36
PROVIDERS: ADMIT Internal Medicine; ATTEND Hospitalist
PROC: 3E033NZ Introduction of Analgesics, Hypnotics, Sedatives into Peripheral Vein, Percutaneous Approach (ICD-10-PCS; principal; 2018-06-06)
PROC: 3E033GC Introduction of Other Therapeutic Substance into Peripheral Vein, Percutaneous Approach (ICD-10-PCS; 2018-06-06)
DX: R51 Headache (principal); R07.9 Chest pain, unspecified; R55 Syncope and collapse; I10 Essential (primary) hypertension; E78.5 Hyperlipidemia, unspecified; E87.6 Hypokalemia
CPT/HCPCS: 36415; 70450-TC; 70460-TC; 71045-TC-FY; 78452-TC; 80048; 80053; 80061; 81003; 82550; 82553; 83721; 83735; 84100; 84484; 85025; 85651; 86140; 93005; 93010; 93017; 93306-TC; 99285-25; A9502; G0378; J0131; J1644; J2785